=== PATIENT | female | born 1970 | race Caucasian/White ===

== ENCOUNTER → 2017-01-19 | Outpatient (CLI) | payer OTHER ==
[2014-12-24 10:00] VITALS: BP 80/65
--- NOTE | 2017-01-19 16:31 | KCIC ---
PROCEDURE Three-view right foot HISTORY Right foot pain for 2 months after injury. COMPARISON None FINDINGS No evidence of an acute fracture. No evidence of bone lesion or bone destruction. No significant soft tissue abnormality. There is a small enthesophyte at the posterior calcaneus. IMPRESSION No evidence of acute fracture or dislocation. Consider follow-up with MRI of the foot if symptoms persist. Electronically signed by: Orestes Li MD (Jan 19, 2017 16:30:51)
== END | disposition home or self-care (01) ==
LOC: KCIC 16:05
PROVIDERS: ATTEND Nurse Practitioner Family
DX: M79.671 Pain in right foot (principal)
CPT/HCPCS: 73630

== ENCOUNTER → 2018-02-24 | Outpatient (CLI) | payer OTHER | END | disposition home or self-care (01) | LOC: KCIC MAMMO 08:07 | DX: Z12.31 Encounter for screening mammogram for malignant neoplasm of breast (principal) | CPT/HCPCS: 77067 ==

== ENCOUNTER → 2019-02-14 | Outpatient (CLI) | payer OTHER ==
[2014-12-24 10:00] VITALS: BP 80/65
--- NOTE | 2019-02-14 17:03 | KCIC ---
3 view study of the left knee and two-view study left tibia and fibula Clinical indications: Patient fell 5 days ago. Bruising and pain involving the anterior aspect of the left knee and anterior aspect of the left tibia. Left knee: No acute fracture or dislocation or lytic process is seen. There is mild soft tissue edema seen anteriorly at the level of the anterior tibial tubercle. No prepatellar soft tissue edema is evident. No significant knee joint effusion is seen. Left tibia and fibula: No acute fracture or dislocation or lytic process is seen. The mortise ankle joint is intact. IMPRESSION: No acute osseous abnormality. Electronically signed by: Ted Gallardo MD (02/14/2019 5:00 PM) [id number]
== END | disposition home or self-care (01) ==
LOC: KCIC 11:13
PROVIDERS: ATTEND Nurse Practitioner Family
DX: M25.562 Pain in left knee (principal); R60.0 Localized edema
CPT/HCPCS: 73562; 73590

== ENCOUNTER → 2020-06-18 | Outpatient (CLI) | payer OTHER ==
[2014-12-24 10:00] VITALS: BP 80/65
--- NOTE | 2020-06-18 16:05 | KCIC ---
Bilateral diagnostic digital mammograms with 3-D tomosynthesis: Reason for examination: Left axillary lump. Comparison is made to previous studies dated 02/24/2018 and 03/07/2014. Bilateral mammograms in CC and oblique projections were obtained with 2-D imaging and 3-D tomosynthesis imaging on a Siemens Inspiration unit and reviewed on the workstation. Interpretation was made with the benefit of CAD. The skin and nipples show no abnormalities. No abnormal axillary lymph nodes are seen. The breast parenchyma is extremely dense. (Breast density: Category D.) There are no dominant masses, suspicious calcifications or architectural distortion. Impression: No evidence of malignancy. Ultrasound to follow. Your patient's mammogram demonstrates that she has dense breast tissue (breast density category C or D), which could hide abnormalities, and if she has other risk factors for breast cancer that have been identified, she might benefit from supplemental screening tests that may be suggested by you as her ordering physician. Dense breast tissue, in and of itself, is a relatively common condition. Therefore, this information is not provided to cause undue concern, but rather to raise your awareness and to promote discussion with your patient regarding the presence of other risk factors, in addition to dense breast tissue. Your patient's mammography results will be sent to her. BI-RAD Category 0: Incomplete. Needs additional imaging evaluation. Left breast ultrasound: Ultrasound examination of the left breast was performed with attention to the area of clinical concern and axilla. There is no discrete cystic or solid mass in the left axilla in the area of clinical concern. No abnormal appearing lymph nodes are seen in the axilla. IMPRESSION: No focal abnormality seen in the area of clinical concern. The area of concern probably represents accessory tissue in the axillary tail of [place]. Recommend clinical follow-up. BI-RADS Category 1: Negative. "Our facility is accredited by the [employer] Mammography [employer]." This patient's information has been entered into a reminder system for the patient to be notified with the results of her examination and a target date for the next mammogram. Electronically signed by: Valentina Rodriguez MD (06/18/2020 4:02 PM) [id number]
== END ==
LOC: KCIC MAMMO 08:21
PROVIDERS: ATTEND Nurse Practitioner Family
DX: R22.2 Localized swelling, mass and lump, trunk (principal)
CPT/HCPCS: 76641; 77066; G0279; 77062